=== PATIENT | male | born 1945 | race Caucasian/White ===

== ENCOUNTER 2020-11-09 04:01 | Inpatient (IN) | payer MEDICARE, MEDICAID ==
[~2020-11-09] VITALS: Ht 172.7 cm; Wt 72.1 kg
[2020-11-09] VITALS (7 sets, daily range): BP systolic 121–164; BP diastolic 74–105
[2020-11-09] MEDS ORDERED: ASPIRIN 81MG TABLET PO ONE (04:30)
[2020-11-09 04:39] LABS: MEAN CORPUSCULAR HEMOGLOBIN 30.9 pg (28.0-32.0); MEAN CORPUSCULAR VOLUME 92.3 fL (80.0-94.0); MEAN PLATELET VOLUME 6.4 fl (7.4-10.4); PLATELET 282 x1000/uL (130-400); RED BLOOD CELL COUNT 3.25 mill/uL (4.7-6.1); RED CELL DISTRIBUTION WIDTH 17.3 % (11.6-14.6)
[2020-11-09 04:44] LABS: CHLORIDE 95 mEq/L (98-107)
[2020-11-09] MEDS ORDERED: FUROSEMIDE 100MG/10ML VIAL IV SCH (05:24)
[2020-11-09] MEDS ORDERED: CALCIUM CHLORIDE 1GM/10ML SYR IV SCH (05:30)
[2020-11-09] MEDS ORDERED: SODIUM BICARBONATE 8.4% 1 MEQ/ML 50ML SYR IV SCH (05:30)
[2020-11-09] MEDS ORDERED: ALBUTEROL (0.083%) 2.5MG/3ML NEB HHN SCH (05:30)
[2020-11-09] MEDS ORDERED: INSULIN REGULAR (HUMULIN R) 300UNITS/3ML VIAL IV SCH (05:30)
[2020-11-09] MEDS ORDERED: DEXTROSE 50% WATER 50ML SYRINGE IV SCH (05:30)
[2020-11-09] MEDS ORDERED: ALBUTEROL (0.5%) 2.5MG/0.5ML NEB HHN ONE (05:48)
[2020-11-09 06:51] LABS: PLATELET ESTIMATE NORMAL
[2020-11-09] MEDS ORDERED: ENOXAPARIN 40MG/0.4ML SYR SUBCUT SCH (09:30)
[2020-11-09] MEDS ORDERED: MAGNESIUM/ALUMINUM HYDROXIDE/SIMETHICONE 30ML UDC PO PRN (09:30)
[2020-11-09] MEDS ORDERED: CLONIDINE 0.1MG TABLET PO PRN (09:30)
[2020-11-09] MEDS ORDERED: ONDANSETRON HCL 4MG/2ML INJ IV PRN (09:30)
[2020-11-09] MEDS ORDERED: HYDROCODONE/ACETAMINOPHEN 5/325MG TABLET PO PRN (09:30)
[2020-11-09] MEDS ORDERED: IPRATROPIUM/ALBUTEROL 0.5-3(2.5)MG/3ML NEB HHN PRN (09:30)
[2020-11-09] MEDS ORDERED: ACETAMINOPHEN 325MG TABLET PO PRN (09:30)
[2020-11-09] MEDS: ENOXAPARIN 30MG/0.3ML SYR SUBCUT SCH (10:57)
[2020-11-09] MEDS ORDERED: DEXTROSE 50% WATER 50ML SYRINGE IV PRN ×2 (16:45)
[2020-11-09] MEDS: INSULIN LISPRO 100 UNITS/ML SUBCUT SCH ×3 (18:00→21:00)
[2020-11-09] MEDS: BLOOD SUGAR DIAGNOSTIC STRIP TEST SCH ×2 (18:03→21:00)
[2020-11-10] VITALS (18 sets, daily range): BP systolic 116–172; BP diastolic 54–143
[2020-11-10 07:18] LABS: HEMATOCRIT. 28.7 % (42.0-52.0); HEMOGLOBIN. 9.7 g/dL (14.0-18.0); MEAN PLATELET VOLUME 6.3 fl (7.4-10.4); PLATELET 260 x1000/uL (130-400); RED BLOOD CELL COUNT 3.12 mill/uL (4.7-6.1); RED CELL DISTRIBUTION WIDTH 17.5 % (11.6-14.6)
[2020-11-10] MEDS: BLOOD SUGAR DIAGNOSTIC STRIP TEST SCH (07:30)
[2020-11-10] MEDS: INSULIN LISPRO 100 UNITS/ML SUBCUT SCH (08:00)
[2020-11-10 08:10] LABS: PHOSPHORUS 5.8 mg/dL (2.5-4.9)
[2020-11-10] MEDS: ENOXAPARIN 30MG/0.3ML SYR SUBCUT SCH (09:25)
[2020-11-10] MEDS: OMEPRAZOLE 20MG CAPSULE EXTENDED RELEASE PO SCH (09:25)
[2020-11-10] MEDS ORDERED: MECLIZINE 12.5MG TABLET PO PRN (10:30)
[2020-11-10] MEDS ORDERED: SODIUM POLYSTYRENE SULFONATE 15 G/60 ML BOT PO NR (13:00)
[2020-11-10 14:44] LABS: PLATELET ESTIMATE NORMAL
[2020-11-11] VITALS (7 sets, daily range): BP systolic 132–173; BP diastolic 56–89
[2020-11-11 08:50] LABS: HEMATOCRIT. 29.5 % (42.0-52.0); HEMOGLOBIN. 9.8 g/dL (14.0-18.0); MEAN CORPUSCULAR HEMOGLOBIN 30.8 pg (28.0-32.0); MEAN PLATELET VOLUME 6.4 fl (7.4-10.4); PLATELET 264 x1000/uL (130-400); RED BLOOD CELL COUNT 3.17 mill/uL (4.7-6.1); RED CELL DISTRIBUTION WIDTH 17.7 % (11.6-14.6)
[2020-11-11] MEDS: OMEPRAZOLE 20MG CAPSULE EXTENDED RELEASE PO SCH (08:56)
[2020-11-11] MEDS: ENOXAPARIN 30MG/0.3ML SYR SUBCUT SCH (08:56)
[2020-11-11 13:16] LABS: PLATELET ESTIMATE NORMAL
== END 2020-11-11 13:40 | disposition home or self-care (01) | DRG 640 ==
LOC: ER 04:01 → 5EST 06:49 → ENRESERV 08:33
PROVIDERS: ADMIT Internal Medicine; ATTEND Internal Medicine
PROC: 5A1D70Z Performance of Urinary Filtration, Intermittent, Less than 6 Hours Per Day (ICD-10-PCS; principal; 2020-11-09)
PROC: 5A1D70Z Performance of Urinary Filtration, Intermittent, Less than 6 Hours Per Day (ICD-10-PCS; 2020-11-11)
DX: E87.5 Hyperkalemia (principal); N18.6 End stage renal disease; I12.0 Hypertensive chronic kidney disease with stage 5 chronic kidney disease or end stage renal disease; E11.22 Type 2 diabetes mellitus with diabetic chronic kidney disease; E87.1 Hypo-osmolality and hyponatremia; E83.39 Other disorders of phosphorus metabolism; E83.41 Hypermagnesemia; Z82.49 Family history of ischemic heart disease and other diseases of the circulatory system; Z86.73 Personal history of transient ischemic attack (TIA), and cerebral infarction without residual deficits; Z99.2 Dependence on renal dialysis
CPT/HCPCS: 36415; 71045; 80048; 80053; 80061; 80076; 82962; 83036; 83735; 83880; 84100; 84132; 84484; 85025; 93005; 93970; 94640; 97162; 97166; 99291; J1650; J1815; J1940; J3490; J8597